=== PATIENT | male | born 1965 | race Hispanic/Latino ===

== ENCOUNTER 2019-03-29 03:42 | Emergency (ER) | payer MEDICARE, OTHER | END 2019-03-29 04:28 | disposition home or self-care (01) | LOC: EDH 03:42 | DX: E11.65 Type 2 diabetes mellitus with hyperglycemia (principal); I10 Essential (primary) hypertension; F41.9 Anxiety disorder, unspecified; Z79.4 Long term (current) use of insulin; Z79.899 Other long term (current) drug therapy; Z90.49 Acquired absence of other specified parts of digestive tract; Z98.890 Other specified postprocedural states | CPT/HCPCS: 82948; 99282 ==

== ENCOUNTER → 2022-02-14 | Outpatient (CLI) | payer OTHER | END | disposition home or self-care (01) | LOC: RAH 11:00 | PROVIDERS: ATTEND Neurological Surgery | DX: M48.062 Spinal stenosis, lumbar region with neurogenic claudication (principal); M47.816 Spondylosis without myelopathy or radiculopathy, lumbar region; M51.26 Other intervertebral disc displacement, lumbar region | CPT/HCPCS: 72148 ==

== ENCOUNTER → 2022-03-06 | Outpatient (CLI) | payer OTHER, MEDICARE ==
[~2022-03-06] MED LIST: REGADENOSON 0.4 MG/5 ML PF SYG IVP SCH
== END | disposition home or self-care (01) ==
LOC: RAH 08:44
PROVIDERS: ATTEND Internal Medicine
DX: R94.31 Abnormal electrocardiogram [ECG] [EKG] (principal); E11.40 Type 2 diabetes mellitus with diabetic neuropathy, unspecified; Z04.89 Encounter for examination and observation for other specified reasons; M47.815 Spondylosis without myelopathy or radiculopathy, thoracolumbar region
CPT/HCPCS: 71046; 78452; 93017; 96374; A9500 ×2; J2785

== ENCOUNTER 2022-04-11 05:58 | Observation (INO) | payer OTHER, MEDICARE ==
[2022-04-09 09:25] VITALS: BP 150/83
[2022-04-09 10:30] LABS: CREATININE 1.2 mg/dL (0.5-1.5); POTASSIUM 4.6 mmol/L (3.5-5.1)
[~2022-04-11] VITALS: Ht 190.5 cm; Wt 130.1 kg
[2022-04-11] VITALS (34 sets, daily range): BP systolic 100–151; BP diastolic 50–77
[~2022-04-11 05:58] MED LIST changes: +EMPA10TA PO; +GABA-533 PO; +GLIP1TAB6 PO; +IBUP-2077 PO; +OLME20TA22 PO; +PARO-37 PO; +PRAV40TA3 PO; -REGADENOSON 0.4 MG/5 ML PF SYG IVP SCH
[2022-04-11] MEDS ORDERED: CEFAZOLIN SODIUM 1 GM VIAL ONE ×4 (06:11→11:56)
[2022-04-11] MEDS ORDERED: 0.9%NACL 1000ML 1,000 ML IV ONE (06:11)
[2022-04-11] MEDS ORDERED: BUPIVACAINE/EPI/PF 0.5% 30ML VIAL IJ ONE (06:43)
[2022-04-11] MEDS ORDERED: MORPHINE PF 100MG/10ML AMP IV ONE (06:43)
[2022-04-11] MEDS ORDERED: THROMBIN-JMI 20000 UNIT KIT TP ONE (06:44)
[2022-04-11] MEDS ORDERED: SUCCINYLCHOLINE CHLORIDE 20 MG/ML 10 ML VIAL ONE (06:48)
[2022-04-11] MEDS ORDERED: DEXAMETHASONE SOD PHOSPHATE 10MG/ML 1ML VIAL ONE (06:48)
[2022-04-11] MEDS ORDERED: MIDAZOLAM HCL 1 MG/ML 2ML VIAL ONE (06:49)
[2022-04-11] MEDS ORDERED: NEOSTIGMINE 5MG/5ML SYR IV ONE (06:49)
[2022-04-11] MEDS ORDERED: ONDANSETRON 4MG INJ ONE ×2 (06:49→06:52)
[2022-04-11] MEDS ORDERED: ROCURONIUM 10MG/1ML SYR 10 MG/ML ML ONE (06:49)
[2022-04-11] MEDS ORDERED: PROPOFOL 10 MG/ML 20ML VIAL IV ONE ×2 (06:49→11:35)
[2022-04-11] MEDS ORDERED: GLYCOPYRROLATE 1 MG/5 ML SYRINGE ONE (06:49)
[2022-04-11] MEDS ORDERED: FENTANYL CITRATE PF 50 MCG/1 ML 2ML VIAL ONE ×2 (06:49→12:23)
[2022-04-11] MEDS: CEFAZOLIN SODIUM 3 GM VIAL IV SCH ×2 (07:00→08:00)
[2022-04-11] MEDS ORDERED: EPHEDRINE SULFATE 50 MG/ML AMPULE ONE ×2 (08:45→09:16)
[2022-04-11 08:57] LABS: ABG BASE EXCESS -4.8 mmol/L (-2.0-3.0); ABG HCO3 21.5 mmol/L (21.0-28.0); ABG OXYGEN SATURATION 94.9 % (95.0-99.0); ABG PCO2 44 mmHg (35-48)
[2022-04-11] MEDS ORDERED: PHENYLEPHRINE HCL 10 MG/ML 1ML VIAL IV ONE (09:06)
[2022-04-11] MEDS ORDERED: ALBUTEROL INHALER 90MCG/INH IH ONE (09:10)
[2022-04-11 09:31] LABS: ABG BASE EXCESS -4.2 mmol/L (-2.0-3.0); ABG HCO3 21.1 mmol/L (21.0-28.0); ABG OXYGEN SATURATION 99.7 % (95.0-99.0); ABG PCO2 40 mmHg (35-48)
[2022-04-11] MEDS ORDERED: 0.9%NACL 10ML VIAL IVP PRN (12:00)
[2022-04-11] MEDS ORDERED: IBUPROFEN 800 MG TAB PO PRN (12:00)
[2022-04-11] MEDS ORDERED: GABAPENTIN 300 MG CAPSULE PO PRN ×2 (12:00→12:30)
[2022-04-11] MEDS ORDERED: PROMETHAZINE HCL 25 MG/ML 1ML AMPULE IM PRN (12:00)
[2022-04-11] MEDS ORDERED: MORPHINE 2 MG SYG IVP PRN (12:00)
[2022-04-11] MEDS ORDERED: LOSARTAN 100 MG TABLET PO SCH (12:20)
[2022-04-11] MEDS ORDERED: MEPERIDINE-PF 25 MG/ML SYG ONE (12:23)
[2022-04-11] MEDS ORDERED: GABAPENTIN 100 MG CAPSULE PO PRN (12:30)
[2022-04-11] MEDS: METFORMIN HCL 500 MG TABLET PO SCH (17:07)
[2022-04-11] MEDS: GLIPIZIDE 5 MG TABLET PO SCH (17:07)
[2022-04-11] MEDS: HYDROCODONE/ACETAMINOPHEN 5/325 MG TAB PO PRN (17:15)
[2022-04-11] MEDS: LACTATED RINGERS 1000ML 1,000 ML IV SCH (17:24)
[2022-04-11] MEDS: DEXAMETHASONE SOD PHOSPHATE 4 MG/ML 1ML VIAL IVP SCH (18:40)
[2022-04-11] MEDS: INSULIN HUMULIN R 100 UNIT/ML 3ML SQ SCH (20:58)
[2022-04-11] MEDS ORDERED: SIMVASTATIN 20 MG TABLET PO SCH (21:00)
[2022-04-11] MEDS: CEFAZOLIN SODIUM 1 GM VIAL IVP SCH (21:06)
[2022-04-12 00:08] VITALS: BP 128/67
[2022-04-12] MEDS: DEXAMETHASONE SOD PHOSPHATE 4 MG/ML 1ML VIAL IVP SCH ×3 (00:34→11:37)
[2022-04-12] MEDS: HYDROCODONE/ACETAMINOPHEN 5/325 MG TAB PO PRN ×2 (00:34→06:51)
[2022-04-12] MEDS: LACTATED RINGERS 1000ML 1,000 ML IV SCH (01:20)
[2022-04-12 04:07] VITALS: BP 127/62
[2022-04-12] MEDS: INSULIN HUMULIN R 100 UNIT/ML 3ML SQ SCH (06:14)
[2022-04-12] MEDS: CEFAZOLIN SODIUM 1 GM VIAL IVP SCH ×2 (06:16→11:37)
[2022-04-12 07:45] VITALS: BP 127/73
[2022-04-12] MEDS: METFORMIN HCL 500 MG TABLET PO SCH (08:09)
[2022-04-12] MEDS: GLIPIZIDE 5 MG TABLET PO SCH (08:10)
[2022-04-12] MEDS ORDERED: EMPAGLIFLOZIN 10 MG PO SCH (09:00)
[2022-04-12] MEDS ORDERED: PAROXETINE HCL 20 MG TABLET PO SCH (09:00)
== END 2022-04-12 13:08 | disposition home or self-care (01) ==
LOC: DAH 05:58 → DAHIP 05:59 → 4BH 13:31
PROVIDERS: ADMIT Neurological Surgery; ATTEND Neurological Surgery
DX: M48.061 Spinal stenosis, lumbar region without neurogenic claudication (principal); Z20.822 Contact with and (suspected) exposure to COVID-19; I10 Essential (primary) hypertension; E11.9 Type 2 diabetes mellitus without complications; E78.5 Hyperlipidemia, unspecified; Z79.899 Other long term (current) drug therapy
CPT/HCPCS: 36415; 36600 ×2; 63047; 63048 ×2; 71045; 72020; 80048; 82435 ×2; 82803 ×2; 82947 ×2; 82948 ×4; 83605 ×2; 84132 ×2; 84295 ×2; 85018 ×2; 87635; 96372 ×2; 96374; 96375; 96376; A4215; A4216; A4221; A4222; A4223 ×2; A4344; A4510; A4600; A4649 ×2; A4663; A6260; C9803; G0378 ×24; J0330; J0690 ×7; J1100 ×5; J1815 ×2; J2175; J2250; J2274; J2370; J2405 ×2; J2704 ×2; J3010 ×2; J3490 ×2; J7030; J7120 ×3; J2710

== ENCOUNTER 2022-06-25 14:08 | Emergency (ER) | payer OTHER, MEDICARE ==
[~2022-06-25] VITALS: Ht 190.5 cm; Wt 124.7 kg
[2022-06-25 14:13] VITALS: BP 138/77
[2022-06-25] MEDS ORDERED: ACET-66 PO (15:43)
[2022-06-25] MEDS ORDERED: GUAIF10 PO (15:43)
== END 2022-06-25 15:53 | disposition home or self-care (01) ==
LOC: EDH 14:08
DX: U07.1 COVID-19 (principal)
CPT/HCPCS: 99284; 87635; 87880; 87804 ×2; C9803